=== PATIENT | male | born 1980 | race Caucasian/White ===

== ENCOUNTER 2023-02-02 13:06 | Inpatient (IN) ==
[2023-02-02 13:41] LABS: ABS Eosinophils 0.1 10^3/uL (0.0-0.5); ABS Lymphocytes 1.8 10^3/uL (1.0-4.8); ABS Monocytes 0.4 10^3/uL (0.0-1.1); ABS Neutrophils 4.3 10^3/uL (1.5-7.6); ABS Nucleated RBC 0.01 10^3/ul; Eosinophil % 2.1 %; Hematocrit 40.9 % (38-53); Hemoglobin 13.8 g/dL (13.2-16.3); Lymphocyte % 27.6 %; Mean Corpuscular Hemoglobin 30.5 pg (27-33); Mean Corpuscular Hgb Conc 33.9 g/dL (31-36); Mean Corpuscular Volume 90.1 fL (80-97); Mean Platelet Volume 7.9 fL (7.5-11.2); Nucleated Red Blood Cells % 0.1 /100 WBC (0.0-0.4); Platelet Count 305 10^3/uL (150-450); Red Blood Count 4.53 10^6/uL (4.06-5.63); Red Cell Distribution Width 14.5 % (12-17); White Blood Count 6.7 10^3/uL (3.6-10.2)
[2023-02-02 13:54] LABS: INR 1.05 (0.88-1.18)
[2023-02-02 13:58] LABS: Albumin 4.1 g/dL (3.2-5.2); Albumin/Globulin Ratio 1.6 (1-3); Creatinine, Serum 1.03 mg/dL (0.67-1.17); Globulin 2.6 g/dL (2-4); Total Bilirubin 0.6 mg/dL (0.2-1.0); Total Protein 6.7 g/dL (6.4-8.9); eGFR CKD-EPI 93.6 (>60)
[2023-02-02] MEDS ORDERED: Iohexol 350 (CONTRAST) 500 ML MDV IV ONE (14:43)
[2023-02-02 14:56] LABS: High Sensitivity Troponin 1 Hr 9871 pg/mL (<20)
[2023-02-02] MEDS ORDERED: Heparin DRIP 25,000 UNITS BAG 25,000 UNITS/500 ML BAG IV SCH ×2 (16:30→17:00)
[2023-02-02 17:01] LABS: Creatinine, Serum 1.08 mg/dL (0.67-1.17); eGFR CKD-EPI 88.4 (>60)
[2023-02-02] MEDS: Heparin 5000 UNITS/ML 1 mL VIAL IV SCH ×2 (17:03→23:06)
[2023-02-02 17:42] LABS: HDL Cholesterol 14.3 mg/dL
[2023-02-03 06:15] LABS: ABS Eosinophils 0.1 10^3/uL (0.0-0.5); ABS Monocytes 0.5 10^3/uL (0.0-1.1); ABS Neutrophils 4.9 10^3/uL (1.5-7.6); Eosinophil % 1.6 %; Hematocrit 39.2 % (38-53); Hemoglobin 13.2 g/dL (13.2-16.3); Lymphocyte % 26.4 %; Mean Corpuscular Hemoglobin 30.1 pg (27-33); Mean Corpuscular Hgb Conc 33.8 g/dL (31-36); Mean Corpuscular Volume 89.1 fL (80-97); Mean Platelet Volume 8.2 fL (7.5-11.2); Platelet Count 291 10^3/uL (150-450); Red Cell Distribution Width 14.2 % (12-17); White Blood Count 7.5 10^3/uL (3.6-10.2)
[2023-02-03] MEDS: Heparin 5000 UNITS/ML 1 mL VIAL IV SCH (06:31)
[2023-02-03] MEDS ORDERED: NS 0.9% 1000 ml BAG 1,000 ML IV SCH ×2 (08:00→10:00)
[2023-02-03] MEDS ORDERED: fentaNYL 100 mcg/2 ml 50 MCG/ML VIAL ONE (08:29)
[2023-02-03] MEDS ORDERED: VERAPAMIL 2.5 MG/ML 2 ML VIAL ** 5 mg/2 ml ONE (08:29)
[2023-02-03] MEDS ORDERED: Heparin 2 UNITS/ML 1000 mls 1,000 ML IV ONE ×2 (08:29→08:46)
[2023-02-03] MEDS ORDERED: Heparin 1,000 UNIT/ML 10 ml (10,000 UNITS) CATHLAB/DIALYSIS ONE (08:29)
[2023-02-03] MEDS ORDERED: Midazolam 5 mg/5 ml VIAL 1 mg/ml 5 ml VIAL (5 mg) ONE (08:29)
[2023-02-03] MEDS ORDERED: Lidocaine 1% MPF 5 ML VIAL ONE (08:30)
[2023-02-03] MEDS ORDERED: Iohexol 350 (CONTRAST) 100 ML PAK IV ONE (08:30)
[2023-02-03] MEDS ORDERED: nitroGLYCERIN DRIP 25,000 MCG/250 ML BTL ONE (08:30)
[2023-02-03] MEDS ORDERED: Atropine 0.1 MG/ML 10 ml SYR (1 mg) ONE ×2 (08:53→10:49)
[2023-02-03] MEDS ORDERED: Isosorbide Mononit ER 30mg TAB PO SCH (11:00)
[2023-02-04 06:53] LABS: C Reactive Protein 7.89 mg/L (<8.01)
[2023-02-04 06:57] LABS: CKMB ng/mL 15.4 ng/mL (0.6-6.3)
[2023-02-04 11:23] VITALS: BP 136/71
[2023-02-05 14:38] LABS: Creatine Kinase 167 U/L (39 - 308)
[2023-02-07 17:10] LABS: Creatine Kinase BB 0 % (0); Creatine Kinase MB 6 % (0); Creatine Kinase MM 94 % (100)
== END 2023-02-04 11:00 | disposition home or self-care (01) | DRG 282 ==
LOC: ED 13:06 → SUATTDRO 16:39 → EDHOLD 16:39 → MEDTELE 19:48
PROVIDERS: ADMIT Internal Medicine; ATTEND Student in an Organized Health Care Education/Training Program